=== PATIENT | male | born 1970 | race Caucasian/White ===

== ENCOUNTER 2020-04-15 17:05 | Emergency (ER) | payer OTHER, SELFPAY ==
[2020-04-15 17:12] VITALS: BP 140/89; PULSE 67; RESP 16; TEMP 36.3; O2SAT 100
--- NOTE | 2020-04-15 17:16 | ED.DENTAL ---
HPI - Dental/Oral General Chief complaint: Upper Respiratory Infection Stated complaint: SWOLLEN GLANDS Source: patient Mode of arrival: ambulatory Limitations: no limitations History of Present Illness HPI Narrative: The patient, a non-smoker/nondrinker, presents with swelling. Patient states he has new onset, today left sublingual swelling that began abruptly today spontaneously [not while eating.] It lasted about 3 hours and then resolved. No fever, hoarseness, sore throat, trismus, toothache -he has seen his dentist this quarter. Patient advised to follow-up with ENT, peroxide gargle, use lemon drops, warm packs and/ or massage. Related Data Home Medications Medication Instructions Recorded Confirmed atorvastatin 20 mg PO DAILY 04/15/20 04/15/20 Allergies Allergy/AdvReac Type Severity Reaction Status Date / Time No Known Allergies Allergy Unverified 04/15/20 17:12 Review of Systems Review of Systems: Narrative: The patient has been informed that they may have pre-hypertension or Hypertension based on a BP reading in the department. I recommend that the patient call the primary care provider listed on their discharge instructions or a physician of their choice this week to arrange follow up for further evaluation of possible pre-hypertension or Hypertension General/Constitutional: No weight loss,fever Eyes: N0: Redness,discharge Ears/Nose/Throat: No: Epistaxis,ear discharge Respiratory: Denies: Hemoptysis Gastrointestinal: No Vomiting, Bleeding-rectal Skin: No Lumps, eruption Neurologic: No Focal Weakness,Sz Hematologic: Denies: Petechiae/Purpura Psychiatric: No: Suicida ideationl All Other Systems: Reviewed and Negative PMFSH Comments At time of signature, agree with nursing past medical, surgical, social and family history. There is no relevant family history pertinent to the presenting complaint Exam Narrative: Exam Narrative: General Appearance: Well appearing, Well nourished, Obese, Conjunctiva clear Ears: External ear normal, Auditory canal normal Nose: Normal nose Mouth/Throat: Normal appearing, Normal lips, MM moist, Uvula midline Neck: Supple, No adenopathy, mobile, mild/minimal left sub-mandibular gland induration without mass, fluctuance, significant tenderness Respiratory: Airway patent, No respiratory distress, Musculoskeletal: Full ROM, Non tender, Normal strength Skin: Warm, Dry, Normal color Neurological: A&O x3, , Normal affect Course Vital Signs Vital signs: Vital Signs Temperature 97.3 F L 04/15/20 17:12 Pulse Rate 67 04/15/20 17:12 Respiratory Rate 16 04/15/20 17:12 Blood Pressure 140/89 04/15/20 17:12 Pulse Oximetry 100 04/15/20 17:12 Temperature 97.3 F L 04/15/20 17:12 Pulse Rate 67 04/15/20 17:12 Respiratory Rate 16 04/15/20 17:12 Blood Pressure 140/89 04/15/20 17:12 Pulse Oximetry 100 04/15/20 17:12 Discharge Plan Discharge Clinical Impression: Acute sialoadenitis Patient Disposition: Home, Self-Care Condition: Stable Instructions: Antibiotic Form, Sialoadenitis (ED) Additional Instructions: See EENT in follow-up Prescriptions: New amoxicillin-pot clavulanate [Augmentin] 500-125 mg tablet 1 tablet PO Q12H Qty: 10 RF: 0 tramadol 50 mg tablet 50 mg PO Q6H PRN (Reason: pain) Qty: 15 RF: 1 No Action atorvastatin 20 mg tablet 20 mg PO DAILY RF: 0 Interventions: Discharge Disposition Last Done: 04/15/20 17:35 Follow-up/Referrals: Jeffery,Ji Muñoz MD [Primary Care Provider] -
== END 2020-04-15 17:35 | disposition home or self-care (01) ==
PROVIDERS: Emergency Provider Emergency Medicine; PCP Internal Medicine
DX: K11.20 Sialoadenitis, unspecified (principal); E78.00 Pure hypercholesterolemia, unspecified
CPT/HCPCS: 99203; G0463

== ENCOUNTER 2022-05-04 16:14 | Emergency (ER) | payer BC, SELFPAY ==
[2022-05-04 16:28] VITALS: BP 115/82; PULSE 75; RESP 20; TEMP 36.8; O2SAT 100
--- NOTE | 2022-05-04 16:37 | ED.GENADULT ---
HPI - General Adult General Chief complaint: Unspecified Stated complaint: BODY CRAMPS Time Seen by Provider: 05/04/22 16:37 Source: patient, RN notes reviewed and old records reviewed Mode of arrival: ambulatory Limitations: no limitations History of Present Illness HPI narrative: 51-year-old male presents to the [facility] with complaints of generalized body cramps. Patient states that it is in his legs, chest, abdomen and arms. symptoms started approximately 45 minutes prior to arrival. Unable to sit, get comfortable. Muscle tremors noted. No treatment prior to arrival reports that he was working on his computer. Walks with a steady, slow gait. Denies chest pain or abdominal pain. Does report that he has felt nauseous. Has not been working outside. Does take atorvastatin but has been on for several years. MD complaint: body cramps Onset (ago): minute(s) (45) Relieving factors: none Exacerbating factors: movement Treatments prior to arrival: none Related Data Home Medications Medication Instructions Recorded Confirmed atorvastatin 20 mg tablet 20 mg PO DAILY 04/15/20 05/04/22 Allergies Allergy/AdvReac Type Severity Reaction Status Date / Time No Known Allergies Allergy Verified 05/04/22 16:31 Review of Systems Review of Systems: All systems reviewed & are unremarkable except as noted in HPI and below Constitutional: Constitutional: Reports as per HPI, Reports body ache(s), Denies chills and Denies fever(s) Eyes: Eyes: Reports no additional eye complaints ENT: Reports system reviewed and no additional complaints, except as documented Cardiovascular: Cardiovascular: Reports no additional cardiovascular complaints Respiratory: Respiratory: Reports no additional respiratory complaints Gastrointestinal: Gastrointestinal: Reports no additional gastrointestinal complaints Musculoskeletal: Musculoskeletal: Reports no additional musculoskeletal complaints Integumentary/Breasts: Skin/Breast: Reports system reviewed and no additional complaints, except as docu Neurologic: Reports system reviewed and no additional complaints, except as documented Psychiatric: Psychiatric: Reports no additional psychiatric complaints Allergic/Immunologic: Allergic/Immunologic: Reports no additional allergic/immunologic complaints PMF Past Medical History Medical History (Updated 05/04/22 @ 16:57 by Rema Travis APRN) High cholesterol Social History Social History (Updated 05/04/22 @ 16:57 by Rema Travis APRN) Living arrangements: with family Gender identity (if verbalized by the patient): Male Comments At the time of my signature, I reviewed and agree with the nursing past medical, surgical, social, and family history. There is no relevant family history pertinent to the patient complaint. Exam Const: General: cooperative, healthy appearing, alert, uncomfortable and well groomed Nutritional Appearance: well nourished Orientation/consciousness: patient oriented x3 Limitations: no limitations HENMT: Head: normal to inspection Ears: external ears normal General nose exam: Normal external nose present Face and sinus: normal facial exam and face symmetric Eyes: General: appearance normal, both eyes and all related structures Pupils: Equal, round and reactive pupils present Neck: Neck: normal visual inspection, no lymphadenopathy and no meningeal signs Chest: Chest palpation & inspection: normal inspection of the chest Resp: Effort & Inspection: normal respiratory effort and no use of accessory muscles Auscultation: clear to auscultation bilaterally, no crackles, no rales, no rhonchi and no wheezes Cardio: Rate: regular rate Rhythm: regular rhythm Back/Spine/Pelvis: Back: no CVA tenderness Cervical Spine: normal cervical lordosis Thoracic/Lumbar Spine: thoracic and lumbar spine normal to inspection Skin: General skin exam: normal color Rashes: no rashes Wounds: no wounds Neuro: Gene
== END 2022-05-04 16:51 | disposition short-term general hospital (02) ==
PROVIDERS: Emergency Provider Nurse Practitioner; PCP Internal Medicine
DX: M79.10 Myalgia, unspecified site (principal); E78.00 Pure hypercholesterolemia, unspecified
CPT/HCPCS: 99212; G0463